=== PATIENT | male | born 1940 | race Caucasian/White ===

== ENCOUNTER 2024-05-14 17:10 | Inpatient (IN) | payer MEDICARE, OTHER ==
[2024-05-14] MEDS ORDERED: Nitroglycerin/D5W 25 MG/250 ML BOTTLE IV SCH (17:30)
[2024-05-14] MEDS: Aspirin 81 MG Tab.Chew PO ONE (17:47)
[2024-05-14] MEDS: Nitroglycerin/D5W 25 MG/250 ML BOTTLE IV SCH (18:02)
[2024-05-14] MEDS ORDERED: Heparin Sodium/D5W 250 ML IV SCH (18:15)
[2024-05-14 18:16] LABS: BASOPHILS PERCENT AUTO 0.3 % (0.0-1.0); EOSINOPHILS ABSOLUTE AUTO 0.2 K/mm3 (0.0-0.4); EOSINOPHILS PERCENT AUTO 2.2 % (0.0-6.0); HEMATOCRIT 48.1 % (42.0-52.0); HEMOGLOBIN 15.5 gm/dl (14.0-18.0); IMMATURE GRAN ABSOLUTE AUTO 0.03 K/mm3 (0.00-0.05); IMMATURE GRAN PERCENT AUTO 0.4 % (0.0-0.4); LYMPHOCYTES ABSOLUTE AUTO 1.8 K/mm3 (1.0-4.8); LYMPHOCYTES PERCENT AUTO 23.5 % (24.0-44.0); MEAN CORPUSCULAR HEMOGLOBIN 29.5 pg (28.0-32.0); MEAN CORPUSCULAR HGB CONC 32.2 g/dl (32.0-36.0); MEAN CORPUSCULAR VOLUME 91.6 fl (83.0-99.0); MEAN PLATELET VOLUME 10.4 fl (9.4-12.4); MONOCYTES ABSOLUTE AUTO 0.7 K/mm3 (0.0-0.8); MONOCYTES PERCENT AUTO 8.9 % (0.0-8.0); NEUTROPHILS PERCENT AUTO 64.7 % (41.0-71.0); PLATELET COUNT,PLT 175 K/mm3 (150-400); RED BLOOD CELL COUNT 5.25 M/mm3 (4.52-5.90); WHITE BLOOD CELL COUNT,WBC 7.78 K/mm3 (3.9-11.3)
[2024-05-14] MEDS: Heparin Sodium 5,000 Units/ML Vial IVPUSH ONE (18:21)
[2024-05-14] MEDS: Heparin Sodium/D5W 250 ML IV SCH ×2 (18:22→19:51)
[2024-05-14 18:28] LABS: A/G RATIO 0.9 (1-2); ALBUMIN 3.2 g/dl (3.4-5.0); ANION GAP 8.3 (5-15); BILIRUBIN TOTAL 0.5 mg/dL (0.2-1.0); BUN/CREATININE RATIO 22.5 (14-18); CALCIUM 9.5 mg/dL (8.5-10.1); CREATININE 0.8 mg/dL (0.7-1.3); EST CRCL DRUG DOSING (CG) 57.56 mL/min; POTASSIUM,K 4.3 mEq/L (3.5-5.1); PROTEIN TOTAL,TP 6.6 g/dl (6.4-8.2)
[2024-05-14] MEDS ORDERED: Naloxone 0.4 MG/ML SDV IVPUSH PRN (19:15)
[2024-05-14] MEDS ORDERED: oxyCODONE 5 MG Tab PO PRN (19:15)
[2024-05-14] MEDS ORDERED: Acetaminophen 325 MG Tab PO PRN (19:15)
[2024-05-14] MEDS: Morphine 2 MG/ML SYRINGE IVPUSH PRN (20:02)
[2024-05-14] MEDS: Nitroglycerin 0.4 MG Tab.SL SL PRN (20:03)
[2024-05-15 00:29] LABS: INR 1.16; PROTHROMBIN TIME 12.2 SECONDS (9.7-12.0)
[2024-05-15 00:31] LABS: PTT,PARTIAL THROMBOPLSTIN TIME 38.6 SECONDS (21.7-31.4)
[2024-05-15] MEDS: Heparin Sodium 5,000 Units/ML Vial IVPUSH ONE ×4 (01:51→20:30)
[2024-05-15 08:05] LABS: BASOPHILS PERCENT AUTO 0.4 % (0.0-1.0); EOSINOPHILS ABSOLUTE AUTO 0.2 K/mm3 (0.0-0.4); EOSINOPHILS PERCENT AUTO 2.5 % (0.0-6.0); HEMATOCRIT 47.7 % (42.0-52.0); HEMOGLOBIN 15.9 gm/dl (14.0-18.0); IMMATURE GRAN ABSOLUTE AUTO 0.04 K/mm3 (0.00-0.05); IMMATURE GRAN PERCENT AUTO 0.5 % (0.0-0.4); LYMPHOCYTES ABSOLUTE AUTO 1.7 K/mm3 (1.0-4.8); MEAN CORPUSCULAR HGB CONC 33.3 g/dl (32.0-36.0); MEAN PLATELET VOLUME 10.1 fl (9.4-12.4); MONOCYTES ABSOLUTE AUTO 0.5 K/mm3 (0.0-0.8); MONOCYTES PERCENT AUTO 6.6 % (0.0-8.0); NEUTROPHILS ABSOLUTE AUTO 5.1 K/mm3 (1.8-7.7); PLATELET COUNT,PLT 164 K/mm3 (150-400); WHITE BLOOD CELL COUNT,WBC 7.54 K/mm3 (3.9-11.3)
[2024-05-15 08:33] LABS: A/G RATIO 0.9 (1-2); ALBUMIN 2.9 g/dl (3.4-5.0); ANION GAP 10.8 (5-15); BILIRUBIN TOTAL 0.5 mg/dL (0.2-1.0); BUN/CREATININE RATIO 23.3 (14-18); CREATININE 0.6 mg/dL (0.7-1.3); EST CRCL DRUG DOSING (CG) 88.67 mL/min; MAGNESIUM 1.7 mg/dL (1.8-2.4); PHOSPHORUS 3.1 mg/dL (2.6-4.7); POTASSIUM,K 3.8 mEq/L (3.5-5.1); PROTEIN TOTAL,TP 6.3 g/dl (6.4-8.2)
[2024-05-15] MEDS ORDERED: Ondansetron 4 MG/2 ML SDV IV PRN (09:03)
[2024-05-15] MEDS ORDERED: Melatonin 3 MG Tab PO PRN (09:03)
[2024-05-15] MEDS ORDERED: Carboxymethylcellulose Sodium 1% Ophth Gel 15 ML Bottle EYEBOTH PRN (09:07)
[2024-05-15] MEDS ORDERED: Clotrimazole 1% Crm 30 GM Tube TOP PRN (09:07)
[2024-05-15] MEDS ORDERED: guaiFENesin/Dextromethorphan 100-10 MG/5 ML Soln 5 ML Cup PO PRN (09:07)
[2024-05-15] MEDS ORDERED: Loratadine 10 MG Tab PO PRN (09:07)
[2024-05-15] MEDS ORDERED: 50% Dextrose in Water 50 ML Syringe IVPUSH PRN (09:07)
[2024-05-15] MEDS: Insulin Lispro 100 Unit/ML 3 ML KwikPen SUBCUT SCH (12:47)
[2024-05-15] MEDS: Magnesium Sulfat/D5W 1GM/100ML 1 GM in Premix Bag 1 BAG IV ONE (14:44)
[2024-05-15] MEDS: Docusate Sodium 100 MG Cap PO SCH (22:04)
[2024-05-15] MEDS: Fish Oil/Omega-3 Fatty Acids 1 Gm Cap PO SCH (22:04)
[2024-05-15] MEDS: Famotidine 20 MG/2 ML SDV IVPUSH SCH (22:04)
[2024-05-16] MEDS: Metoprolol Tartrate 5 MG/5 ML SDV IVPUSH ONE (00:38)
[2024-05-16] MEDS: Metoprolol Tartrate 25 MG Tab PO SCH (00:48)
[2024-05-16 06:39] LABS: ANION GAP 10.9 (5-15); CALCIUM 8.9 mg/dL (8.5-10.1); CREATININE 0.6 mg/dL (0.7-1.3); EST CRCL DRUG DOSING (CG) 88.67 mL/min; MAGNESIUM 1.7 mg/dL (1.8-2.4); POTASSIUM,K 3.9 mEq/L (3.5-5.1)
[2024-05-16] MEDS: Heparin Sodium 5,000 Units/ML Vial IVPUSH ONE (07:33)
[2024-05-16] MEDS: Rosuvastatin 10 MG Tab PO SCH (08:17)
[2024-05-16] MEDS: Polyethylene Glycol 3350 Powder 17 GM Packet PO SCH (08:17)
[2024-05-16] MEDS: Folic Acid 1 MG Tab PO SCH (08:19)
[2024-05-16] MEDS ORDERED: hydrALAZINE 20 MG/ML SDV IVPUSH PRN (13:36)
[2024-05-16] MEDS ORDERED: Labetalol 100 MG/20 ML MDV IVPUSH PRN (13:36)
[2024-05-16] MEDS: Magnesium Sulf/Wat 4 GM/50 mL 4 GM in Premix Bag 1 BAG IV ONE (14:18)
[2024-05-16] MEDS: Carvedilol 3.125 MG Tab PO SCH (21:07)
[2024-05-16] MEDS: Sennosides/Docusate Sodium 50-8.6 MG Tab PO PRN (21:07)
[2024-05-17 07:16] LABS: ANION GAP 9.9 (5-15); CREATININE 0.6 mg/dL (0.7-1.3); POTASSIUM,K 3.9 mEq/L (3.5-5.1)
[2024-05-17 07:17] LABS: CALCIUM 8.9 mg/dL (8.5-10.1); EST CRCL DRUG DOSING (CG) 88.67 mL/min
[2024-05-17 07:26] LABS: HEMOGLOBIN A1C 7.7 %
[2024-05-17] MEDS: Potassium Chloride 20 MEQ Tab.ER PO ONE (17:41)
[2024-05-17] MEDS: Insulin Glargine,Human Rec. Analog 100 Units/ML 3 ML Pen SUBCUT SCH (17:41)
[2024-05-17] MEDS: Metoprolol Tartrate 5 MG/5 ML SDV IVPUSH PRN (18:21)
[2024-05-17] MEDS: Heparin Sodium 5,000 Units/ML Vial IVPUSH ONE (19:01)
[2024-05-18] MEDS: Insulin Glargine,Human Rec. Analog 100 Units/ML 3 ML Pen SUBCUT ONE (11:39)
[2024-05-18] MEDS: Apixaban 5 MG Tab PO SCH (11:41)
[2024-05-18] MEDS ORDERED: Insulin Glargine,Human Rec. Analog 100 Units/ML 3 ML Pen SUBCUT SCH (21:00)
== END 2024-05-18 13:45 | DRG 281 ==
LOC: JD.ED 17:10 → JD.MS 19:27
PROVIDERS: ADMIT Student in an Organized Health Care Education/Training Program; ATTEND Student in an Organized Health Care Education/Training Program
DX: I21.3 ST elevation (STEMI) myocardial infarction of unspecified site (principal); I69.351 Hemiplegia and hemiparesis following cerebral infarction affecting right dominant side; Z66 Do not resuscitate; I48.91 Unspecified atrial fibrillation; H54.7 Unspecified visual loss; I25.10 Atherosclerotic heart disease of native coronary artery without angina pectoris; I25.2 Old myocardial infarction; E78.00 Pure hypercholesterolemia, unspecified; I10 Essential (primary) hypertension; E11.9 Type 2 diabetes mellitus without complications; K21.9 Gastro-esophageal reflux disease without esophagitis; E55.9 Vitamin D deficiency, unspecified; I48.0 Paroxysmal atrial fibrillation; Z79.01 Long term (current) use of anticoagulants; Z95.5 Presence of coronary angioplasty implant and graft; Z79.4 Long term (current) use of insulin; Z79.899 Other long term (current) drug therapy; Z99.3 Dependence on wheelchair
CPT/HCPCS: 36415; 80053; 83880; 84484; 85025; 93005; 96365; 96368; 99285; A9270; J1644 ×2; J2305; 70450; 70450-26; 80048; 82947; 83036; 83735; 84100; 85610; 85730; 93010; 93306; J1815; J1815-GY; J2270; J3475; J3490